=== PATIENT | male | born 1985 | race Caucasian/White ===

== ENCOUNTER 2017-01-22 17:39 | Inpatient (IN) | payer MEDICARE, MEDICAID ==
[~2017-01-22] VITALS: Ht 182.9 cm; Wt 134.5 kg
[2017-01-22] MEDS ORDERED: LAMO25 PO (22:49)
[2017-01-22] MEDS ORDERED: MIRT15 PO (22:49)
[2017-01-22] MEDS ORDERED: ARIP10TA14 PO (22:49)
[2017-01-23] MEDS ORDERED: ZOLPIDEM TARTRATE 10 MG TABLET PO PRN (00:30)
[2017-01-23] MEDS ORDERED: PNEUMOCOCCAL VACCINE POLYVALENT 0.5 ML VIAL [PPSV23] IM ONE (02:15)
[2017-01-23 02:18] VITALS: BP 145/88
[2017-01-23 02:36] VITALS: BP 145/88
[2017-01-23 08:16] VITALS: BP 139/76
[2017-01-23 16:00] VITALS: BP 138/72
[2017-01-23] MEDS: LORazepam 2 MG TABLET PO PRN (19:18)
[2017-01-24 07:02] VITALS: BP 112/65
[2017-01-24 08:15] VITALS: BP 146/82
[2017-01-24] MEDS: LORazepam 2 MG TABLET PO PRN (08:26)
[2017-01-24 09:17] LABS: BASOPHILS # (AUTO) 0.04 K/uL (0.00-0.20); BASOPHILS % (AUTO) 0.5 % (0.0-2.0); EOSINOPHILS # (AUTO) 0.24 K/uL (0.00-0.70); EOSINOPHILS % (AUTO) 3.03 % (1.0-6.0); HEMATOCRIT 47.7 % (41-53); HEMOGLOBIN 16.2 g/dL (13.5-17.5); LYMPHOCYTES # (AUTO) 2.1 K/uL (1.0-4.8); LYMPHOCYTES % (AUTO) 26.4 % (22.0-44.0); MEAN CORPUSCULAR HEMOGLOBIN 27.8 pg (26.0-34.0); MEAN CORPUSCULAR HGB CONC 33.9 G/dL (31.0-37.0); MEAN CORPUSCULAR VOLUME 82 fL (80-100); MONOCYTES # (AUTO) 0.7 K/uL (0.1-1.0); MONOCYTES % (AUTO) 8.5 % (2.0-9.0); NEUTROPHILS # (AUTO) 4.8 K/uL (1.8-7.7); NEUTROPHILS % (AUTO) 61.5 % (40.0-70.0); PLATELET COUNT (AUTO) 208 K/uL (150-450); RED BLOOD CELL COUNT(AUTO) 5.81 MIL/uL (4.50-5.90); RED CELL DISTRIBUTION WIDTH 13.2 % (11.5-14.5); WHITE BLOOD COUNT (AUTO) 7.9 K/uL (4.5-11.0)
[2017-01-24 09:35] LABS: ALANINE AMINOTRANSFERASE 56 U/L (12-78); ALBUMIN 4.2 g/dL (3.4-5.0); ANION GAP 12 mmol/L (8-16); ASPARTATE AMINOTRANSFERASE 25 U/L (15-37); CALCIUM, TOTAL 9.2 mg/dL (8.8-10.5); CARBON DIOXIDE 29 mmol/L (22-29); CHLORIDE 103 mmol/L (98-107); CHOL/HDL RATIO 5.4 (4.2-7.3); CREATININE 0.75 mg/dL (0.60-1.30); GLOMERULAR FILTR. RATE CALC > 60 mL/min (>60); POTASSIUM 4.2 mmol/L (3.5-5.1); SODIUM SERUM 144 mmol/L (136-145); THYROID STIMULATING HORMONE 2.29 uIU/mL (0.36-3.74); TOTAL PROTEIN, SERUM 7.8 g/dL (6.4-8.2); UREA NITROGEN, BLOOD 12 mg/dL (7-18)
[2017-01-24 10:44] LABS: VITAMIN B12 LEVEL 293 pg/mL (211-911)
[2017-01-24 10:54] LABS: CREATINE KINASE MB 0.5 ng/mL (0-5); CREATINE KINASE, TOTAL 97 U/L (39-308)
[2017-01-24 16:13] VITALS: BP 112/70
[2017-01-24 16:22] LABS: GLUCOSE,POINT OF CARE 94 MG/DL (70-110)
[2017-01-24 16:42] VITALS: BP 118/76
[2017-01-24] MEDS ORDERED: LORazepam 2 MG/ML VIAL ONE (16:43)
[2017-01-24] MEDS ORDERED: CloNIDine HCL 0.1 MG TABLET PO SCH (17:00)
[2017-01-24] MEDS ORDERED: FAMOTIDINE 20 MG TABLET PO SCH (17:00)
[2017-01-24] MEDS ORDERED: FLUTICASONE PROPIONATE 50 MCG/SPRAY 16 GM NASAL SPRAY NASAL SCH (17:00)
[2017-01-24] MEDS ORDERED: LevETIRAcetam 250 MG TABLET PO SCH ×2 (17:00)
[2017-01-24] MEDS ORDERED: LORazepam 2 MG/ML VIAL IM ONE (17:15)
[2017-01-24] MEDS ORDERED: MIRTAZAPINE 15 MG TABLET PO SCH (21:00)
[2017-01-25] MEDS ORDERED: FOLIC ACID 1 MG TABLET PO SCH (09:00)
[2017-01-25] MEDS ORDERED: LamoTRIgine 25 MG TABLET PO SCH (09:00)
[2017-01-25] MEDS ORDERED: ARIPiprazole 10 MG TABLET PO SCH (09:00)
[2017-01-25] MEDS ORDERED: DOCUSATE SODIUM 250 MG CAPSULE PO SCH (09:00)
[2017-01-27 04:48] LABS: HEPATITIS Bs ANTIGEN SCREEN P Negative (Negative); HEPATITIS C AB SCREEN 0.2 s/co ratio (0.0-0.9)
== END 2017-01-24 19:02 | disposition short-term general hospital (02) | DRG 885 ==
LOC: EDSTATUS 17:39 → B3A 01-23 00:20 → 3EC 01-24 12:26
PROVIDERS: ADMIT Psychiatry & Neurology Child & Adolescent Psychiatry; ATTEND Psychiatry & Neurology Child & Adolescent Psychiatry
PROC: 3E0234Z Introduction of Serum, Toxoid and Vaccine into Muscle, Percutaneous Approach (ICD-10-PCS; principal; 2017-01-23)
DX: F25.1 Schizoaffective disorder, depressive type (principal); G93.40 Encephalopathy, unspecified; R45.851 Suicidal ideations; Z68.41 Body mass index [BMI] 40.0-44.9, adult; G47.33 Obstructive sleep apnea (adult) (pediatric); E66.9 Obesity, unspecified; F43.10 Post-traumatic stress disorder, unspecified; I10 Essential (primary) hypertension; G40.909 Epilepsy, unspecified, not intractable, without status epilepticus; J45.909 Unspecified asthma, uncomplicated; F95.2 Tourette's disorder; K27.9 Peptic ulcer, site unspecified, unspecified as acute or chronic, without hemorrhage or perforation; K29.70 Gastritis, unspecified, without bleeding; F40.240 Claustrophobia; F41.9 Anxiety disorder, unspecified; Z83.3 Family history of diabetes mellitus; Z82.3 Family history of stroke; Z82.5 Family history of asthma and other chronic lower respiratory diseases; Z91.19 Patient's noncompliance with other medical treatment and regimen
CPT/HCPCS: 80074; 82306; 82607; 82746; 82962; 83036; 84439; 84443; 86592; 90471; J2060

== ENCOUNTER 2017-01-24 19:10 | Inpatient (IN) | payer MEDICARE, OTHER ==
[~2017-01-24 19:10] MED LIST: ARIP10TA14 PO; LAMO25 PO; MIRT15 PO
[2017-01-24] MEDS ORDERED: ZOLPIDEM TARTRATE 10 MG TABLET PO PRN (21:15)
[2017-01-24 21:27] VITALS: BP 140/90
[2017-01-24] MEDS: MIRTAZAPINE 15 MG TABLET PO SCH (22:32)
[2017-01-25] VITALS (10 sets, daily range): BP systolic 109–133; BP diastolic 55–83
[2017-01-25] MEDS ORDERED: MAGNESIUM HYDROXIDE SUSPENSION 30 ML UDCUP PO PRN (00:15)
[2017-01-25] MEDS ORDERED: ZOLPIDEM TARTRATE 5 MG TABLET PO PRN (00:15)
[2017-01-25] MEDS ORDERED: BISACODYL 10 MG RECTAL RECTAL SUPPOSITORY PR PRN (00:15)
[2017-01-25] MEDS ORDERED: ONDANSETRON HCL 4 MG/2 ML VIAL IVP PRN (00:15)
[2017-01-25 06:26] LABS: BASOPHILS % (AUTO) 0.5 % (0.0-2.0); HEMATOCRIT 48.2 % (41-53); HEMOGLOBIN 15.8 g/dL (13.5-17.5); LYMPHOCYTES # (AUTO) 2.1 K/uL (1.0-4.8); LYMPHOCYTES % (AUTO) 21.8 % (22.0-44.0); MEAN CORPUSCULAR HEMOGLOBIN 27.6 pg (26.0-34.0); MEAN CORPUSCULAR HGB CONC 32.9 G/dL (31.0-37.0); MEAN CORPUSCULAR VOLUME 84 fL (80-100); MONOCYTES # (AUTO) 0.9 K/uL (0.1-1.0); MONOCYTES % (AUTO) 9.2 % (2.0-9.0); NEUTROPHILS # (AUTO) 6.3 K/uL (1.8-7.7); NEUTROPHILS % (AUTO) 65.5 % (40.0-70.0); PLATELET COUNT (AUTO) 202 K/uL (150-450); RED BLOOD CELL COUNT(AUTO) 5.74 MIL/uL (4.50-5.90); RED CELL DISTRIBUTION WIDTH 13.3 % (11.5-14.5); WHITE BLOOD COUNT (AUTO) 9.7 K/uL (4.5-11.0)
[2017-01-25 07:46] LABS: HEMOGLOBIN A1C 4.8 % (4.5-6.2)
[2017-01-25 07:59] LABS: ANION GAP 9 mmol/L (8-16); CARBON DIOXIDE 29 mmol/L (22-29); CHLORIDE 104 mmol/L (98-107); CHOL/HDL RATIO 4.9 (4.2-7.3); CREATINE KINASE, TOTAL 66 U/L (39-308); CREATININE 0.75 mg/dL (0.60-1.30); GLOMERULAR FILTR. RATE CALC > 60 mL/min (>60); POTASSIUM 4.1 mmol/L (3.5-5.1); SODIUM SERUM 142 mmol/L (136-145); UREA NITROGEN, BLOOD 14 mg/dL (7-18)
[2017-01-25] MEDS: ENOXAPARIN SODIUM 40 MG/0.4 ML PF SYRINGE SQ SCH (09:00)
[2017-01-25] MEDS: LamoTRIgine 25 MG TABLET PO SCH (09:04)
[2017-01-25] MEDS: FLUTICASONE PROPIONATE 50 MCG/SPRAY 16 GM NASAL SPRAY NASAL SCH ×2 (09:04→20:17)
[2017-01-25] MEDS: DOCUSATE SODIUM 250 MG CAPSULE PO SCH (09:05)
[2017-01-25] MEDS: FOLIC ACID 1 MG TABLET PO SCH (09:05)
[2017-01-25] MEDS: ARIPiprazole 10 MG TABLET PO SCH (09:05)
[2017-01-25] MEDS: FAMOTIDINE 20 MG TABLET PO SCH ×2 (09:05→20:18)
[2017-01-25] MEDS: CloNIDine HCL 0.1 MG TABLET PO SCH ×2 (09:05→20:18)
[2017-01-25] MEDS: LevETIRAcetam 250 MG TABLET PO SCH ×2 (09:05→20:17)
[2017-01-25] MEDS: LORazepam 2 MG/ML VIAL IVP PRN ×2 (14:26→18:54)
[2017-01-25] MEDS: MIRTAZAPINE 15 MG TABLET PO SCH (20:18)
[2017-01-26 04:41] VITALS: BP 108/61
[2017-01-26 06:40] LABS: BASOPHILS % (AUTO) 0.6 % (0.0-2.0); EOSINOPHILS % (AUTO) 3.4 % (1.0-6.0); HEMATOCRIT 46.3 % (41-53); HEMOGLOBIN 15.2 g/dL (13.5-17.5); LYMPHOCYTES # (AUTO) 2.4 K/uL (1.0-4.8); LYMPHOCYTES % (AUTO) 25.1 % (22.0-44.0); MEAN CORPUSCULAR HEMOGLOBIN 27.4 pg (26.0-34.0); MEAN CORPUSCULAR HGB CONC 32.8 G/dL (31.0-37.0); MEAN CORPUSCULAR VOLUME 84 fL (80-100); MONOCYTES # (AUTO) 0.8 K/uL (0.1-1.0); MONOCYTES % (AUTO) 8.7 % (2.0-9.0); NEUTROPHILS # (AUTO) 6.1 K/uL (1.8-7.7); NEUTROPHILS % (AUTO) 62.2 % (40.0-70.0); PLATELET COUNT (AUTO) 206 K/uL (150-450); RED BLOOD CELL COUNT(AUTO) 5.54 MIL/uL (4.50-5.90); RED CELL DISTRIBUTION WIDTH 13.4 % (11.5-14.5); WHITE BLOOD COUNT (AUTO) 9.7 K/uL (4.5-11.0)
[2017-01-26 06:49] LABS: ANION GAP 9 mmol/L (8-16); CALCIUM, TOTAL 9.2 mg/dL (8.8-10.5); CARBON DIOXIDE 29 mmol/L (22-29); CHLORIDE 105 mmol/L (98-107); CREATININE 0.79 mg/dL (0.60-1.30); GLOMERULAR FILTR. RATE CALC > 60 mL/min (>60); SODIUM SERUM 143 mmol/L (136-145); UREA NITROGEN, BLOOD 14 mg/dL (7-18)
[2017-01-26 07:23] VITALS: BP 106/58
[2017-01-26] MEDS: FOLIC ACID 1 MG TABLET PO SCH (08:09)
[2017-01-26] MEDS: ENOXAPARIN SODIUM 40 MG/0.4 ML PF SYRINGE SQ SCH (08:09)
[2017-01-26] MEDS: FAMOTIDINE 20 MG TABLET PO SCH ×2 (08:09→20:36)
[2017-01-26] MEDS: DOCUSATE SODIUM 250 MG CAPSULE PO SCH (08:09)
[2017-01-26] MEDS: LamoTRIgine 25 MG TABLET PO SCH (08:10)
[2017-01-26] MEDS: FLUTICASONE PROPIONATE 50 MCG/SPRAY 16 GM NASAL SPRAY NASAL SCH ×2 (08:10→20:36)
[2017-01-26] MEDS: LevETIRAcetam 250 MG TABLET PO SCH ×2 (08:10→20:36)
[2017-01-26] MEDS: ARIPiprazole 10 MG TABLET PO SCH (08:10)
[2017-01-26] MEDS: CloNIDine HCL 0.1 MG TABLET PO SCH ×2 (09:00→20:36)
[2017-01-26 11:23] VITALS: BP 105/64
[2017-01-26 16:34] VITALS: BP 114/72
[2017-01-26 19:42] VITALS: BP 126/78
[2017-01-26] MEDS ORDERED: MIRTAZAPINE 15 MG TABLET PO SCH (21:00)
[2017-01-26 23:17] VITALS: BP 119/73
[2017-01-27 04:45] VITALS: BP 116/60
[2017-01-27 06:57] LABS: BASOPHILS % (AUTO) 0.8 % (0.0-2.0); EOSINOPHILS % (AUTO) 3.7 % (1.0-6.0); HEMATOCRIT 45.9 % (41-53); LYMPHOCYTES # (AUTO) 2.1 K/uL (1.0-4.8); LYMPHOCYTES % (AUTO) 23.5 % (22.0-44.0); MEAN CORPUSCULAR HEMOGLOBIN 27.4 pg (26.0-34.0); MEAN CORPUSCULAR HGB CONC 32.7 G/dL (31.0-37.0); MEAN CORPUSCULAR VOLUME 84 fL (80-100); MONOCYTES # (AUTO) 0.8 K/uL (0.1-1.0); MONOCYTES % (AUTO) 9.4 % (2.0-9.0); NEUTROPHILS # (AUTO) 5.5 K/uL (1.8-7.7); NEUTROPHILS % (AUTO) 62.6 % (40.0-70.0); PLATELET COUNT (AUTO) 190 K/uL (150-450); RED BLOOD CELL COUNT(AUTO) 5.48 MIL/uL (4.50-5.90); RED CELL DISTRIBUTION WIDTH 13.1 % (11.5-14.5); WHITE BLOOD COUNT (AUTO) 8.8 K/uL (4.5-11.0)
[2017-01-27 07:04] VITALS: BP 126/64
[2017-01-27 07:38] LABS: ANION GAP 8 mmol/L (8-16); CALCIUM, TOTAL 9.1 mg/dL (8.8-10.5); CARBON DIOXIDE 30 mmol/L (22-29); CHLORIDE 103 mmol/L (98-107); CREATININE 0.72 mg/dL (0.60-1.30); GLOMERULAR FILTR. RATE CALC > 60 mL/min (>60); POTASSIUM 4.5 mmol/L (3.5-5.1); SODIUM SERUM 141 mmol/L (136-145); UREA NITROGEN, BLOOD 13 mg/dL (7-18)
[2017-01-27] MEDS: CloNIDine HCL 0.1 MG TABLET PO SCH (10:29)
[2017-01-27] MEDS: DOCUSATE SODIUM 250 MG CAPSULE PO SCH (10:29)
[2017-01-27] MEDS: LamoTRIgine 25 MG TABLET PO SCH (10:29)
[2017-01-27] MEDS: FAMOTIDINE 20 MG TABLET PO SCH (10:29)
[2017-01-27] MEDS: ARIPiprazole 10 MG TABLET PO SCH (10:29)
[2017-01-27] MEDS: FLUTICASONE PROPIONATE 50 MCG/SPRAY 16 GM NASAL SPRAY NASAL SCH (10:29)
[2017-01-27] MEDS: FOLIC ACID 1 MG TABLET PO SCH (10:29)
[2017-01-27] MEDS: ENOXAPARIN SODIUM 40 MG/0.4 ML PF SYRINGE SQ SCH (10:30)
[2017-01-27] MEDS: LevETIRAcetam 250 MG TABLET PO SCH (10:30)
[2017-01-27 11:22] VITALS: BP 119/67
[2017-01-27] MEDS ORDERED: LEVE250T55 PO (11:28)
[2017-01-27] MEDS ORDERED: CLON.1 PO (11:28)
[2017-01-27] MEDS ORDERED: DOCU250C91 PO (11:29)
[2017-01-27] MEDS ORDERED: FAMO20 PO (11:30)
[2017-01-27] MEDS ORDERED: TRAZ-147 PO (11:30)
[2017-01-27] MEDS ORDERED: FLUT16H NASAL (11:31)
[2017-01-27] MEDS ORDERED: FOLI1 PO (11:31)
== END 2017-01-27 13:50 | disposition home or self-care (01) | DRG 101 ==
LOC: 5N 19:10
PROVIDERS: ADMIT Internal Medicine Geriatric Medicine; ATTEND Internal Medicine Geriatric Medicine
PROC: 5A09357 Assistance with Respiratory Ventilation, Less than 24 Consecutive Hours, Continuous Positive Airway Pressure (ICD-10-PCS; principal; 2017-01-25)
PROC: 4A00X4Z Measurement of Central Nervous Electrical Activity, External Approach (ICD-10-PCS; 2017-01-26)
DX: G40.909 Epilepsy, unspecified, not intractable, without status epilepticus (principal); F33.2 Major depressive disorder, recurrent severe without psychotic features; I10 Essential (primary) hypertension; E66.01 Morbid (severe) obesity due to excess calories; G47.33 Obstructive sleep apnea (adult) (pediatric); K21.9 Gastro-esophageal reflux disease without esophagitis; E78.1 Pure hyperglyceridemia; F44.5 Conversion disorder with seizures or convulsions; F25.9 Schizoaffective disorder, unspecified; F79 Unspecified intellectual disabilities; F95.2 Tourette's disorder; F60.3 Borderline personality disorder; Z62.819 Personal history of unspecified abuse in childhood; Z91.5 Personal history of self-harm; Z83.3 Family history of diabetes mellitus; Z82.5 Family history of asthma and other chronic lower respiratory diseases; Z81.8 Family history of other mental and behavioral disorders; Z82.3 Family history of stroke; Z84.1 Family history of disorders of kidney and ureter
CPT/HCPCS: 70450; 83036; 83735; 84439; 87081; 94660; 95816; G0482; J1650; J2060

== ENCOUNTER 2019-05-03 18:20 | Inpatient (IN) | payer MEDICARE, MEDICAID ==
[~2019-05-03] VITALS: Ht 182.9 cm; Wt 138.2 kg
[~2019-05-03 18:20] MED LIST changes: -ARIP10TA14 PO; +ARIP10TA8 PO; +CLON-570 PO; +DOCU250C91 PO; +FAMO20 PO; +FLUT16H NASAL; +FOLI1 PO; +LEVE250T55 PO; +TRAZ-220 PO
[2019-05-03] MEDS ORDERED: PRAZ1 PO (19:34)
[2019-05-03] MEDS ORDERED: TRAZ150 PO (19:34)
[2019-05-03] MEDS ORDERED: LORazepam 2 MG TABLET PO PRN (21:00)
[2019-05-03 21:32] VITALS: BP 123/85
[2019-05-03] MEDS: ZOLPIDEM TARTRATE 10 MG TABLET PO PRN (22:11)
[2019-05-04 06:29] VITALS: BP 120/81
[2019-05-04 08:11] VITALS: BP 140/80
[2019-05-04 08:47] LABS: EOSINOPHILS % (AUTO) 2.8 % (1.0-6.0); HEMATOCRIT 48.7 % (41-53); LYMPHOCYTES # (AUTO) 2.8 K/uL (1.0-4.8); LYMPHOCYTES % (AUTO) 30.4 % (22.0-44.0); MEAN CORPUSCULAR HEMOGLOBIN 28.4 pg (26.0-34.0); MEAN CORPUSCULAR HGB CONC 32.9 G/dL (31.0-37.0); MEAN CORPUSCULAR VOLUME 86 fL (80-100); MONOCYTES # (AUTO) 0.8 K/uL (0.1-1.0); MONOCYTES % (AUTO) 8.6 % (2.0-9.0); NEUTROPHILS # (AUTO) 5.3 K/uL (1.8-7.7); NEUTROPHILS % (AUTO) 57.2 % (40.0-70.0); PLATELET COUNT (AUTO) 202 K/uL (150-450); RED BLOOD CELL COUNT(AUTO) 5.65 MIL/uL (4.50-5.90); RED CELL DISTRIBUTION WIDTH 13.6 % (11.5-14.5)
[2019-05-04] MEDS: HALOPERIDOL 5 MG TABLET PO PRN (09:12)
[2019-05-04 09:14] LABS: HEMOGLOBIN A1C 5.4 % (4.5-6.2)
[2019-05-04 09:24] LABS: ALANINE AMINOTRANSFERASE 51 U/L (12-78); ALBUMIN 4.5 g/dL (3.4-5.0); ALKALINE PHOSPHATASE 63 U/L (46-116); ANION GAP 9 mmol/L (8-16); ASPARTATE AMINOTRANSFERASE 23 U/L (15-37); BILIRUBIN,TOTAL 0.9 mg/dL (0.1-1.0); CALCIUM, TOTAL 9.8 mg/dL (8.8-10.5); CARBON DIOXIDE 30 mmol/L (22-29); CHLORIDE 103 mmol/L (98-107); CHOL/HDL RATIO 5.8 (4.2-7.3); CHOLESTEROL 187 mg/dL (131-200); CREATININE 0.89 mg/dL (0.60-1.30); FREE T4 (FREE THYROXINE) 0.88 ng/dL (0.76-1.46); GLOMERULAR FILTR. RATE CALC > 60 mL/min (>60); GLUCOSE,RANDOM 84 mg/dL (70-110); HDL CHOLESTEROL 32 mg/dL (40-60); LDL CHOL (CALC.) 108 mg/dL (0-130); POTASSIUM 4.4 mmol/L (3.5-5.1); SODIUM SERUM 142 mmol/L (136-145); THYROID STIMULATING HORMONE 4.83 uIU/mL (0.36-3.74); TOTAL PROTEIN, SERUM 7.9 g/dL (6.4-8.2); TRIGLYCERIDES 236 mg/dL (15-150); UREA NITROGEN, BLOOD 16 mg/dL (7-18)
[2019-05-04 16:05] VITALS: BP 109/65
[2019-05-04] MEDS: LamoTRIgine 100 MG TABLET PO SCH (17:09)
[2019-05-04] MEDS: TraZODone HCL 150 MG TABLET PO SCH (20:30)
[2019-05-05 06:00] VITALS: BP 121/68
[2019-05-05 08:18] VITALS: BP 109/63
[2019-05-05] MEDS: LamoTRIgine 100 MG TABLET PO SCH (08:22)
[2019-05-05] MEDS: FAMOTIDINE 20 MG TABLET PO SCH ×2 (09:30→16:35)
[2019-05-05] MEDS: DOCUSATE SODIUM 250 MG CAPSULE PO SCH (09:30)
[2019-05-05] MEDS: FLUTICASONE PROPIONATE 50 MCG/SPRAY 16 GM NASAL SPRAY NASAL SCH ×2 (12:28→17:42)
[2019-05-05 16:43] VITALS: BP 116/75
[2019-05-05] MEDS: ACETAMINOPHEN 325 MG TABLET PO PRN (18:29)
[2019-05-05] MEDS: TraZODone HCL 150 MG TABLET PO SCH (20:23)
[2019-05-05 21:28] VITALS: BP 113/79
[2019-05-05] MEDS: PRAZOSIN HCL 2 MG CAPSULE PO SCH (21:29)
[2019-05-06 05:07] VITALS: BP 110/72
[2019-05-06 08:20] VITALS: BP 151/79
[2019-05-06] MEDS: FAMOTIDINE 20 MG TABLET PO SCH ×2 (08:40→16:32)
[2019-05-06] MEDS: DOCUSATE SODIUM 250 MG CAPSULE PO SCH (08:40)
[2019-05-06] MEDS: LamoTRIgine 100 MG TABLET PO SCH (08:40)
[2019-05-06] MEDS: FLUTICASONE PROPIONATE 50 MCG/SPRAY 16 GM NASAL SPRAY NASAL SCH ×2 (08:40→16:32)
[2019-05-06 09:31] VITALS: BP 117/71
[2019-05-06] MEDS: HALOPERIDOL 5 MG TABLET PO PRN (12:13)
[2019-05-06 16:05] VITALS: BP 120/74
[2019-05-06 20:29] VITALS: BP 114/74
[2019-05-06] MEDS: TraZODone HCL 150 MG TABLET PO SCH (20:30)
[2019-05-06] MEDS: PRAZOSIN HCL 2 MG CAPSULE PO SCH (20:30)
[2019-05-07 05:48] VITALS: BP 118/70
[2019-05-07 08:08] VITALS: BP 119/74
[2019-05-07] MEDS: LamoTRIgine 100 MG TABLET PO SCH (08:10)
[2019-05-07] MEDS: FAMOTIDINE 20 MG TABLET PO SCH ×2 (08:10→16:19)
[2019-05-07] MEDS: DOCUSATE SODIUM 250 MG CAPSULE PO SCH (08:10)
[2019-05-07] MEDS: FLUTICASONE PROPIONATE 50 MCG/SPRAY 16 GM NASAL SPRAY NASAL SCH ×2 (08:11→16:20)
[2019-05-07 10:05] VITALS: BP 112/72
[2019-05-07] MEDS: ACETAMINOPHEN 325 MG TABLET PO PRN (10:05)
[2019-05-07 14:35] LABS: GLUCOMETER DEV NAME(LOC) BV2X.; GLUCOSE,POINT OF CARE 100 MG/DL (70-110)
[2019-05-07 16:11] VITALS: BP 121/78
[2019-05-07 20:00] VITALS: BP 116/66
[2019-05-07] MEDS: PRAZOSIN HCL 2 MG CAPSULE PO SCH (20:04)
[2019-05-07] MEDS: TraZODone HCL 150 MG TABLET PO SCH (20:04)
[2019-05-08 06:59] VITALS: BP 122/79
[2019-05-08 08:04] VITALS: BP 116/77
[2019-05-08] MEDS: FAMOTIDINE 20 MG TABLET PO SCH ×2 (08:26→16:03)
[2019-05-08] MEDS: FLUTICASONE PROPIONATE 50 MCG/SPRAY 16 GM NASAL SPRAY NASAL SCH ×2 (08:26→16:03)
[2019-05-08] MEDS: DOCUSATE SODIUM 250 MG CAPSULE PO SCH (08:26)
[2019-05-08] MEDS: LamoTRIgine 100 MG TABLET PO SCH (08:26)
[2019-05-08 16:10] VITALS: BP 120/74
[2019-05-08] MEDS: PRAZOSIN HCL 2 MG CAPSULE PO SCH (20:11)
[2019-05-08] MEDS: TraZODone HCL 150 MG TABLET PO SCH (20:11)
[2019-05-08] MEDS: ZOLPIDEM TARTRATE 10 MG TABLET PO PRN (22:58)
[2019-05-09 02:49] VITALS: BP 120/69
[2019-05-09 08:15] VITALS: BP 125/69
[2019-05-09] MEDS: FLUTICASONE PROPIONATE 50 MCG/SPRAY 16 GM NASAL SPRAY NASAL SCH ×2 (08:19→16:33)
[2019-05-09] MEDS: FAMOTIDINE 20 MG TABLET PO SCH ×2 (08:19→16:33)
[2019-05-09] MEDS: DOCUSATE SODIUM 250 MG CAPSULE PO SCH (08:19)
[2019-05-09] MEDS: LamoTRIgine 100 MG TABLET PO SCH (08:19)
[2019-05-09 16:19] VITALS: BP 121/76
[2019-05-09 20:27] VITALS: BP 119/70
[2019-05-09] MEDS: TraZODone HCL 150 MG TABLET PO SCH (20:28)
[2019-05-09] MEDS: PRAZOSIN HCL 2 MG CAPSULE PO SCH (20:28)
[2019-05-09] MEDS: ZOLPIDEM TARTRATE 10 MG TABLET PO PRN (21:26)
[2019-05-10 03:19] VITALS: BP 126/90
[2019-05-10] MEDS ORDERED: LAMO100 PO (07:52)
[2019-05-10] MEDS ORDERED: PRAZ2 PO (07:52)
[2019-05-10] MEDS: FAMOTIDINE 20 MG TABLET PO SCH (08:13)
[2019-05-10] MEDS: LamoTRIgine 100 MG TABLET PO SCH (08:13)
[2019-05-10] MEDS: DOCUSATE SODIUM 250 MG CAPSULE PO SCH (08:13)
[2019-05-10] MEDS: FLUTICASONE PROPIONATE 50 MCG/SPRAY 16 GM NASAL SPRAY NASAL SCH (08:14)
[2019-05-10 08:16] VITALS: BP 124/62
[2019-05-16] MEDS ORDERED: ARIPiprazole ER SUSPENSION 400 MG PRE-FILLED DUAL CHAMBER SYRINGE IM SCH (09:00)
== END 2019-05-10 09:30 | disposition home or self-care (01) | DRG 885 ==
LOC: B2X 20:52 → UNDOADMIN 21:20 → B2X 21:20
DX: F25.1 Schizoaffective disorder, depressive type (principal); R45.851 Suicidal ideations; F84.0 Autistic disorder; E03.9 Hypothyroidism, unspecified; E78.1 Pure hyperglyceridemia; F42.9 Obsessive-compulsive disorder, unspecified; F90.9 Attention-deficit hyperactivity disorder, unspecified type; F95.2 Tourette's disorder; F43.12 Post-traumatic stress disorder, chronic; G40.909 Epilepsy, unspecified, not intractable, without status epilepticus; G47.33 Obstructive sleep apnea (adult) (pediatric); I10 Essential (primary) hypertension; J30.9 Allergic rhinitis, unspecified; K21.9 Gastro-esophageal reflux disease without esophagitis; K59.00 Constipation, unspecified; Z81.8 Family history of other mental and behavioral disorders; Z82.3 Family history of stroke; Z82.5 Family history of asthma and other chronic lower respiratory diseases; Z83.3 Family history of diabetes mellitus; Z91.5 Personal history of self-harm
CPT/HCPCS: 83036; 84439; 84443

== ENCOUNTER 2024-07-27 19:07 | Inpatient (IN) | payer MEDICARE, MEDICAID ==
[~2024-07-27] VITALS: Ht 188 cm; Wt 138.5 kg
[~2024-07-27 19:07] MED LIST changes: -ARIP10TA8 PO; -CLON-570 PO; +DOCU-412 PO; -DOCU250C91 PO; -FLUT16H NASAL; +FLUT16SP NASAL; -FOLI1 PO; +LAMO-24 PO; -LAMO25 PO; -LEVE250T55 PO; -MIRT15 PO; +PRAZ2 PO; -TRAZ-220 PO; +TRAZ150T80 PO
[2024-07-27 19:33] VITALS: O2SAT 100
[2024-07-27 19:49] LABS: COVID AG,FIA SOURCE NASAL SWAB
[2024-07-27 19:53] LABS: BASOPHILS % (AUTO) 0.6 % (0.0-2.0); HEMATOCRIT 41.3 % (41-53); HEMOGLOBIN 14.1 g/dL (13.5-17.5); LYMPHOCYTES # (AUTO) 2.1 K/uL (1.0-4.8); LYMPHOCYTES % (AUTO) 21.4 % (22.0-44.0); MEAN CORPUSCULAR HEMOGLOBIN 29.5 pg (26.0-34.0); MEAN CORPUSCULAR HGB CONC 34.1 G/dL (31.0-37.0); MEAN CORPUSCULAR VOLUME 87 fL (80-100); MONOCYTES % (AUTO) 9.8 % (2.0-9.0); NEUTROPHILS # (AUTO) 6.4 K/uL (1.8-7.7); NEUTROPHILS % (AUTO) 65.2 % (40.0-70.0); PLATELET COUNT (AUTO) 197 K/uL (150-450); RED BLOOD CELL COUNT(AUTO) 4.77 MIL/uL (4.50-5.90); RED CELL DISTRIBUTION WIDTH 12.8 % (11.5-14.5); WHITE BLOOD COUNT (AUTO) 9.8 K/uL (4.5-11.0)
[2024-07-27 20:03] LABS: ANION GAP 8 mmol/L (8-16); CALCIUM, TOTAL 8.8 mg/dL (8.8-10.5); CARBON DIOXIDE 30 mmol/L (22-29); CHLORIDE 102 mmol/L (98-107); CREATININE 0.73 mg/dL (0.60-1.30); GLOMERULAR FILTR. RATE CALC > 60 mL/min (>60); GLUCOSE,RANDOM 101 mg/dL (70-110); POTASSIUM 3.9 mmol/L (3.5-5.1); SODIUM SERUM 140 mmol/L (136-145); UREA NITROGEN, BLOOD 13 mg/dL (7-18)
[2024-07-27 20:07] LABS: ALCOHOL, BLOOD (SERUM) < 3 mg/dL (0-10)
[2024-07-27 20:13] LABS: SARS-COV2 (COVID) ANTIGEN,FIA Negative (Negative)
[2024-07-28 02:04] VITALS: BP 148/89; PULSE 62; RESP 18; TEMP 98; O2SAT 96
[2024-07-28 09:11] VITALS: BP 103/51; PULSE 67; RESP 16; TEMP 97.7; O2SAT 97
[2024-07-28] MEDS ORDERED: LOPERAMIDE HCL 2 MG CAPSULE PO PRN (09:15)
[2024-07-28] MEDS ORDERED: BACITRACIN 28 GM OINTMENT TP PRN (09:15)
[2024-07-28] MEDS ORDERED: BENZOCAINE/MENTHOL LOZENGE PO PRN (09:15)
[2024-07-28] MEDS ORDERED: CloNIDine HCL 0.1 MG TABLET PO PRN (09:15)
[2024-07-28] MEDS ORDERED: OMEPRAZOLE 20 MG CAPSULE PO PRN (09:15)
[2024-07-28] MEDS ORDERED: DOCUSATE SODIUM 100 MG CAPSULE PO PRN (09:15)
[2024-07-28] MEDS ORDERED: PETROLATUM,WHITE 28 GM JELLY TP PRN (09:15)
[2024-07-28] MEDS ORDERED: ONDANSETRON 4 MG TABLET PO PRN (09:15)
[2024-07-28] MEDS ORDERED: MAG HYDROX/ALUMINUM HYD/SIMETH ES 30 ML SUSPENSION UDCUP PO PRN (09:15)
[2024-07-28] MEDS ORDERED: MAGNESIUM HYDROXIDE SUSPENSION 30 ML UDCUP PO PRN (09:15)
[2024-07-28] MEDS ORDERED: ALBUTEROL SULFATE HFA 90 MCG/PUFF 8 GM INHALER IH PRN (09:15)
[2024-07-28 16:54] VITALS: BP 136/80; PULSE 69; RESP 18; TEMP 97.5; O2SAT 96
[2024-07-28] MEDS: QUEtiapine FUMARATE 100 MG TABLET PO SCH (16:58)
[2024-07-28] MEDS: IBUPROFEN 600 MG TABLET PO PRN (16:59)
[2024-07-28] MEDS: FLUTICASONE PROPIONATE 50 MCG/SPRAY 16 GM NASAL SPRAY NASAL SCH (16:59)
[2024-07-28] MEDS: LORazepam 2 MG TABLET PO PRN (22:17)
[2024-07-28] MEDS: HALOPERIDOL 5 MG TABLET PO PRN (22:17)
[2024-07-28 23:36] VITALS: BP 110/60; PULSE 70; RESP 18; TEMP 97.8; O2SAT 99
[2024-07-29] MEDS: ZOLPIDEM TARTRATE 10 MG TABLET PO PRN (00:49)
[2024-07-29 09:33] VITALS: BP 105/76; PULSE 62; RESP 18; TEMP 97.5; O2SAT 98
[2024-07-29 11:21] LABS: GLUCOMETER DEV NAME(LOC) 3EX.2; GLUCOSE,POINT OF CARE 105 MG/DL (70-110)
[2024-07-29 21:34] VITALS: BP 105/65; PULSE 64; RESP 18; TEMP 97.4; O2SAT 99
[2024-07-30 08:30] VITALS: BP 110/62; PULSE 62; RESP 18; TEMP 97.3; O2SAT 95
[2024-07-30] MEDS: ARIPiprazole 15 MG TABLET PO SCH (16:05)
[2024-07-30 21:20] VITALS: BP 107/65; PULSE 79; RESP 17; TEMP 97.4; O2SAT 100
[2024-07-31 09:12] VITALS: BP 106/63; PULSE 60; RESP 18; TEMP 97.5; O2SAT 98
[2024-07-31] MEDS ORDERED: SPIR50TA27 PO (12:00)
[2024-07-31] MEDS ORDERED: ESTR1PAT86 TD (12:00)
[2024-07-31] MEDS ORDERED: ATOR20TA65 PO (12:00)
[2024-07-31] MEDS ORDERED: CARB300C9 PO (12:00)
[2024-07-31] MEDS ORDERED: ARIP30TA PO (12:00)
[2024-07-31] MEDS ORDERED: SERT-439 PO (12:00)
[2024-07-31] MEDS ORDERED: FEXO-270 PO (12:00)
[2024-07-31] MEDS: FEXOFENADINE HCL 60 MG TABLET PO SCH (13:37)
[2024-07-31 15:08] LABS: BASOPHILS % (AUTO) 0.9 % (0.0-2.0); EOSINOPHILS % (AUTO) 2.7 % (1.0-6.0); HEMATOCRIT 44.8 % (41-53); HEMOGLOBIN 15.1 g/dL (13.5-17.5); LYMPHOCYTES # (AUTO) 1.6 K/uL (1.0-4.8); LYMPHOCYTES % (AUTO) 18.5 % (22.0-44.0); MEAN CORPUSCULAR HEMOGLOBIN 29.2 pg (26.0-34.0); MEAN CORPUSCULAR HGB CONC 33.7 G/dL (31.0-37.0); MEAN CORPUSCULAR VOLUME 87 fL (80-100); MONOCYTES # (AUTO) 0.8 K/uL (0.1-1.0); MONOCYTES % (AUTO) 9.4 % (2.0-9.0); NEUTROPHILS % (AUTO) 68.5 % (40.0-70.0); PLATELET COUNT (AUTO) 216 K/uL (150-450); RED BLOOD CELL COUNT(AUTO) 5.17 MIL/uL (4.50-5.90); RED CELL DISTRIBUTION WIDTH 12.9 % (11.5-14.5); WHITE BLOOD COUNT (AUTO) 8.8 K/uL (4.5-11.0)
[2024-07-31 15:22] LABS: ALANINE AMINOTRANSFERASE 39 U/L (12-78); ALKALINE PHOSPHATASE 73 U/L (46-116); ASPARTATE AMINOTRANSFERASE 23 U/L (15-37); BILIRUBIN,TOTAL 0.4 mg/dL (0.1-1.0); CALCIUM, TOTAL 9.4 mg/dL (8.8-10.5); CARBAMAZEPINE (TEGRETOL) 0.7 mcg/mL (4.0-12.0); CARBON DIOXIDE 29 mmol/L (22-29); CREATININE 0.81 mg/dL (0.60-1.30); GLOMERULAR FILTR. RATE CALC > 60 mL/min (>60); GLUCOSE,RANDOM 105 mg/dL (70-110); PHOSPHORUS 4.1 mg/dL (2.5-4.9); TOTAL PROTEIN, SERUM 7.9 g/dL (6.4-8.2); UREA NITROGEN, BLOOD 15 mg/dL (7-18)
[2024-07-31 15:29] LABS: ANION GAP 10 mmol/L (8-16); CHLORIDE 99 mmol/L (98-107); SODIUM SERUM 138 mmol/L (136-145)
[2024-07-31] MEDS: AMMONIUM LACTATE 12% 225 GM LOTION TP SCH (17:29)
[2024-07-31] MEDS: SPIRONOLACTONE 50 MG TABLET PO SCH (21:07)
[2024-07-31] MEDS: ATORVASTATIN CALCIUM 20 MG TABLET PO SCH (21:09)
[2024-07-31] MEDS: CarBAMazepine 100 MG ER TABLET PO SCH (21:09)
[2024-07-31] MEDS: HALOPERIDOL 10 MG TABLET PO SCH (21:10)
[2024-07-31] MEDS: BENZTROPINE MESYLATE 2 MG TABLET PO SCH (21:10)
[2024-07-31 21:26] VITALS: BP 110/78; PULSE 89; RESP 18; TEMP 97.6; O2SAT 98
[2024-08-01 06:37] LABS: HEMOGLOBIN A1C 5.1 % (3.8-5.6)
[2024-08-01 06:55] LABS: CHOL/HDL RATIO 4.3 (4.2-7.3)
[2024-08-01] MEDS: FAMOTIDINE 20 MG TABLET PO SCH (07:03)
[2024-08-01 07:18] LABS: THYROID STIMULATING HORMONE 4.67 uIU/mL (0.36-3.74)
[2024-08-01 10:07] VITALS: RESP 18
[2024-08-01] MEDS: ACETAMINOPHEN 325 MG TABLET PO PRN (10:07)
[2024-08-01 10:16] LABS: GLUCOMETER DEV NAME(LOC) 3E.I 2; GLUCOSE,POINT OF CARE 119 MG/DL (70-110)
[2024-08-01 11:07] VITALS: RESP 18
[2024-08-01] MEDS: ESTRADIOL TD SCH (11:51)
[2024-08-01 13:50] VITALS: BP 121/81; PULSE 56; RESP 18; TEMP 97; O2SAT 98
[2024-08-01] MEDS ORDERED: FEXO-353 PO (15:20)
[2024-08-01] MEDS ORDERED: ATOR40TA28 PO (15:20)
[2024-08-01] MEDS ORDERED: BENZ2TAB84 PO (15:20)
[2024-08-01] MEDS ORDERED: CARB-60 PO (15:20)
[2024-08-01] MEDS ORDERED: HALO10TA21 PO (15:20)
[2024-08-01] MEDS ORDERED: SPIR50TA27 PO (15:20)
[2024-08-01] MEDS ORDERED: AMMO225L14 TP (15:20)
[2024-08-01] MEDS ORDERED: [UNRECOGNIZED DRUG - CODE] TD (15:20)
== END 2024-08-01 15:45 | disposition home or self-care (01) | DRG 885 ==
LOC: EMS 19:07 → 3EX 07-28 01:18
PROVIDERS: ADMIT Psychiatry & Neurology Psychiatry; ATTEND Psychiatry & Neurology Psychiatry
DX: F25.9 Schizoaffective disorder, unspecified (principal); R45.851 Suicidal ideations; F32.9 Major depressive disorder, single episode, unspecified; G47.00 Insomnia, unspecified; G47.33 Obstructive sleep apnea (adult) (pediatric); I10 Essential (primary) hypertension; E78.5 Hyperlipidemia, unspecified; Z20.822 Contact with and (suspected) exposure to COVID-19; K59.00 Constipation, unspecified; F41.9 Anxiety disorder, unspecified; F95.2 Tourette's disorder
CPT/HCPCS: 80048; 80053; 80061; 80156; 82140; 82962; 83036; 83735; 84100; 84443; 85025; 99285; G0378; G0480